=== PATIENT | male | born 1960 | race Caucasian/White ===

== ENCOUNTER 2024-04-27 14:16 | Emergency (ER) | payer OTHER, SELFPAY ==
[2024-04-27 14:21] VITALS: BP 137/94; PULSE 112; TEMP 36.5; O2SAT 97; BMI 22.2
--- NOTE | 2024-04-27 15:13 | ED.GENADUL1 ---
HPI HPI - General Adult General Chief complaint: Wound/Laceration Stated complaint: LEFT HAND INJURY Time Seen by Provider: 04/27/24 15:06 Source: patient Mode of arrival: walk-in History of Present Illness HPI narrative: 63-year-old male [id number] who presents to the ER with concerns of laceration to the left dorsal hand between the third and fourth MCP joint. Patient was wearing gloves was at work using a [employer] coffee grinder when it kicked back and struck his left hand. Patient reports mild pain bleeding controlled with bandage. He initially thought his tetanus was up-to-date but it is not after confirming with his spouse. He currently denies any numbness or tingling. He is not on any blood thinners. Patient was wearing protective gloves when the injury occurred. He has no additional complaints at this time. Injury just prior to arrival while cutting metal sheet. Severity: mild Related Data Previous Rx's ?Medication ?Instructions ?Recorded cephalexin 500 mg tablet 500 mg PO TID 5 days #15 tabs 04/27/24 Allergies Allergy/AdvReac Type Severity Reaction Status Date / Time No Known Drug Allergies Allergy Verified 04/27/24 14:23 Opioid HPI Opioid Management Most Recent Opioid Data: No Data to Display Review of Systems ROS Constitutional Denies: fever or chills Eyes Denies: change in vision Ears, nose, mouth, and throat Denies: throat pain, neck pain or throat swelling Cardiovascular Denies: chest pain, palpitations or edema Respiratory Denies: shortness of breath, cough or wheezing Gastrointestinal Denies: abdominal pain, nausea or vomiting Genitourinary Denies: painful urination Integumentary/Breast Denies: rash Neurological Denies: headache Psychiatric Denies: anxiety Hematologic/Lymphatic Denies: easy bruising PFSH PFSH Social History Little interest or pleasure in doing things: not at all Feeling down, depressed, or hopeless: not at all Exam Narrative Exam Narrative: Nurse's notes and vital signs reviewed. Patient is not hypoxic. General: The patient appears well and in no apparent distress. Patient is resting comfortably on cart. Skin: Warm, dry, no pallor noted. 2 cm linear laceration dorsal web space of 3rd and 4th digit into region of MCP's no active bleeding. Head: Normocephalic, atraumatic Eye: Normal conjunctiva Respiratory: Patient is in no distress Musculoskeletal: The left dorsal hand/ wrist shows no obvious deformity. There was minimal swelling noted. The patient had full rom despite pain. The patient had tenderness noted to laceration left hand. Patient is able to fully flex and extend all digits on his left hand he is also able to abduct and adduct symmetrically without evidence of tendon disruption. The patient had no tenderness in the anatomical snuff box. The patient had no pain with axial loading of the thumb. Pulses are intact at brachial and radial 2+. There was no deficit at the elbow or shoulder. The patient has normal capillary refill to all distal digits. The patient has no evidence of cyanosis or mottling. The patient is able to flex and extend all digits without difficulty. Neurological: A&O x4, normal sensory, normal motor Psychiatric: Cooperative Constitutional Vital Signs, click to edit/add: Last Vital Signs Temp 97.7 F 04/27/24 14:21 Pulse 112 H 04/27/24 14:21 Resp 18 04/27/24 14:21 BP 137/94 H 04/27/24 14:21 Pulse Ox 97 04/27/24 14:21 O2 Del Method Room Air 04/27/24 14:21 Course Vital Signs Vital signs: Vital Signs Temperature 97.7 F 04/27/24 14:21 Pulse Rate 112 H 04/27/24 14:21 Respiratory Rate 18 04/27/24 14:21 Blood Pressure 137/94 H 04/27/24 14:21 Pulse Oximetry 97 04/27/24 14:21 Oxygen Delivery Method Room Air 04/27/24 14:21 Temperature 97.7 F 04/27/24 14:21 Pulse Rate 112 H 04/27/24 14:21 Respiratory Rate 18 04/27/24 14:21 Blood Pressure 137/94 H 04/27/24 14:21 Pulse Oximetry 97 04/27/24 14:21 Oxygen Delivery Method Room Air 04/27/24 14:21 Medical Decision Making MDM Narrative Medical decision making narrative: Patient presents with isolated left hand laceration, x-ray performed, tetanus updated. Wound was extensively irrigated and suture repair is required we discussed wound care. The wound appears significantly dirty with grinding debris we will place on a short course of antibiotics pending follow-up with occupational medicine clinic for reevaluation of wound likely suture removal in 10 days. Patient will have to keep his left hand clean and dry limited use to avoid repetitive gripping healing of wound. Wound explored, repaired, no evidence of tendon disruption we discussed optimal healing for incision. He will need to keep this clean and dry. Avoid any repetitive gripping with the left hand and work restrictions were provided. The patient is to followup with [facility] occupational medicine clinic 2-3 days for wound recheck, suture removal in 10 days likely or to return to the emergency department should any of the signs or symptoms worsen or new symptoms develop. Patient had questions answered. The patient agrees with the following Diagnosis and Treatment plan and the patient will be discharged home. Discharge Plan Discharge Chief Complaint: Wound/Laceration Clinical Impression: Laceration of hand, left Patient Disposition: Home, Self-Care Time of Disposition Decision: 16:27 Condition: Good Prescriptions / Home Meds: New cephalexin 500 mg tablet 500 mg PO TID 5 Days Qty: 15 0RF Print Language: Mohawk Instructions: Laceration (ED) Additional Instructions: Keep wound clean and dry for the next 24 hours May shower with water running over hand do not submerge. Discussed wound recheck with occupational medicine clinic in 2 to 3 days suture removal and 10 days. Work restrictions discussed to avoid any repetitive gripping with the left hand he may use a keyboard as symptoms tolerate. Recommend ice and elevation for the next few days to help with swelling. Referrals: [facility] Occupational medicine clinc in 2-3 days [Other] - 1 week REY SCHMIDT [Primary Care Provider] - 1 week Procedures ED Laceration Laceration Left Dorsal hand: Additional comments: Laceration repair: Done under sterile conditions. The use of Betadine was used to prep and clean the area. Local injection with lidocaine 1% was used, approximately 3 cc. The wound was irrigated copiously with normal saline. The wound was explored there small bits of grinding debris that were removed manually. Tissue was then irrigated again until edematous. The laceration was approximated with 5-0 nylon. 7 simple interrupted sutures were placed. Patient tolerated the procedure well. The patient was neurovascularly intact post. the patient had bacitracin applied to the laceration and a dry sterile dressing was place. The patient will need to follow-up in the next 10 days for removal.
--- NOTE | 2024-04-27 15:16 | XR_ITS ---
[facility] [place] [id number] Patient Name: SARAVANAN HDEZ MRN: [id number] date: 1960 Sex: M Assigned Patient Location: ER Current Patient Location: ED.MAIN Accession/Order Number: [id number] Exam Date: 04/27/2024 16:24 Report Date: 04/27/2024 16:25 At the request of: JARROD WEST Procedure: XR hand LT min 3V LEFT HAND - 3 views REASON FOR EXAM: Laceration third and fourth metacarpal. COMPARISON: None FINDINGS: No focal soft tissue abnormality. No radiopaque foreign body is seen. No acute fractures noted. Scattered mild degenerative changes particularly involving the IP joints without bony erosions. XR/XR hand LT min 3V IMPRESSION: NO ACUTE BONY PROCESS. MILD DEGENERATIVE CHANGES INVOLVING THE LEFT HAND. Impression dictated by: Kurt Barragan Jr., D.O.04/27/2024 4:25 PM Dictation Location[facility] Electronically authenticated by: [id number] Y Date: 04/27/2024 16:25
[2024-04-27] MEDS: SODIUM CHLORIDE 0.9% IRRIG SOLUTION 1,000 ML BOTTLE 1000 ML IRR (15:22)
[2024-04-27] MEDS: LIDOCAINE HCL 1% 100 MG/10 ML MDV INJ (15:22)
[2024-04-27] MEDS: ADACEL DIPH,PERTUSS(ACELL),TET VAC/PF 0.5 ML ADULT SYRINGE IM (15:23)
[2024-04-27] MEDS: BACITRACIN 0.9 GM PACKET 1 PACKET TOPICAL (16:36)
[2024-04-27] MEDS: CEPHALEXIN 500 MG CAPSULE PO (16:36)
== END 2024-04-27 16:45 | disposition home or self-care (01) ==
PROVIDERS: Emergency Provider Emergency Medicine; PCP Student in an Organized Health Care Education/Training Program
DX: S61.412A Laceration without foreign body of left hand, initial encounter (principal); Z23 Encounter for immunization; W29.8XXA Contact with other powered hand tools and household machinery, initial encounter
CPT/HCPCS: 12001; 73130; 90471; 90715; 99284